=== PATIENT | female | born 1960 | race Caucasian/White ===

== ENCOUNTER 2025-05-23 10:54 | Outpatient (AMB) | payer MEDICARE, SELFPAY ==
--- NOTE | 2025-05-23 11:17 | MHC.PC.OV ---
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 Diplomatic Interpreter/Translator Required: No Allergies azithromycin Allergy (Severe, Verified 05/23/25 11:52) Nausea Medication List - Last Reconciled 05/19/25 by Cris Mcclelland, INDUSTRIAL ENGINEERING PROFESSOR- albuterol sulfate 90 mcg/actuation inhalation diazepam mg PO ipratropium bromide intranasal Tobacco use date assessed: 05/23/25 Fall risk assessment: 1 Fall in past year Last assessed Fall Risk: 05/23/25 Dental Screening Dental Screen Date: 05/23/25 Did you have a dental visit in the last 12 months?: Yes Did you have a dental problem in the last 6 months where you did not have access to dental care?: No Was dental information given to patient?: Patient has dentist HPI HPI Comments History of Present Illness Details 64 y/o F with MDD, ASYA, Fhx breast ca (mom), current tobacco user, DJD neck and back, fhx of dementia (dad),fhx melanoma (dad) SurgHx: L meniscal tear repair FHx: Dad age 90 dementia. SocHx: works at [employer], [place], . Has children and grandchildren Health Maintenance: See scanned preventative medicine assessment with personalized health plan and screening schedule. Colon: 2018 Mammo DEXA PAP Vaccines: Tdap 2015 declined today AAA screen EKG: [place] Ira of Care: Ortho - Spine derm Visual Acuity: Hearing Screening: ACP: Dietary/Nutrition/Exercise Edu provided: Y Here today as a new patient to establish care No records - relocated from [place]. Major depressive disorder and generalized anxiety disorder not treated with prescriptive medications. Using medical marijuana She has degenerative joint disease in her neck and her back has undergone ablations and steroid injections in the past. Has trialed meloxicam, Cymbalta without relief. Using medical marijuana. Interested in an updated referral for ongoing management History of left knee meniscal tear status post surgery. Imaging done in the past told of end-stage arthritis and need for a joint replacement. Reports pain and swelling of the left knee. Basal cell carcinoma of the skin uses topical treatments. Family history of melanoma in her father. Needs updated referral to Dermatology As bilateral cataracts and needs an updated ophthalmology referral Insomnia both onset and sleep maintenance. Currently using Benadryl, THC and Tylenol. Wakes at 04:00. Due for tetanus but declined Current smoker. Cessation edu. Willing to get routine screening labs today. BP elevated today upon recheck. Denies a history of hypertension Exam awake alert NAD Scleras nonicteric bilat MMM RRR LS CTAB Feet cool, decreased PP bilat, no edema. Arthritic changes to L knee. No acute findings on exam Skin w/ sun damage Mood and affect appropriate Plan Declined tetanus, refer to orthopedics for left knee, refer to pain management for DJD, refer to ophthalmology for cataracts, refer to dermatology for skin cancer, routine screening labs, we will need to return to the office for a blood pressure recheck as well as follow up on health maintenance items that are left outstanding. For insomnia advised to stop taking Benadryl advised to buy [id number] Unisom and take this in addition to Tylenol. Okay to continue medical marijuana. Return to the office in 4-6 weeks for blood pressure recheck in for a subsequent annual wellness visit. Total time spent caring for the patient today was 50 minutes. This includes time spent before the visit reviewing the chart, time spent during the visit, and time spent after the visit on documentation, reviewing laboratory results, diagnostic imaging, medications, performing a medically necessary evaluation, counseling on diagnoses, care coordination, ordering appropriate tests, ordering appropriate medications, review of tests performed by other providers, reporting test results with the patient, communication with other healthcare providers. [facility] Medical History (Updated 05/23/25 @ 12:09 by Cris Mcclelland, [facility]) Allergic Anxiety and depression Arthritis Back ache Disc degeneration, lumbar Edema Headache Hernia Hx of mammogram (~2017) Sinusitis Spine disorder Swelling Surgical History (Updated 05/23/25 @ 11:36 by Dieter Alcaraz MA) H/O knee surgery Hx of colonoscopy (~2018) Family History (Updated 05/23/25 @ 11:38 by Dieter Alcaraz MA) Father HTN (hypertension) High cholesterol Prostate cancer Mother Breast cancer Social History (Updated 05/23/25 @ 11:33 by Dieter Alcaraz MA) Household Members: Spouse Both parents involved: No Caregiver staying overnight: No Housing: House Are you a primary reservoir caretaker to a significant other at home: No Do you presently have visiting nurse or other home services: No 75 years or older and lives alone: No Alcohol intake: current Alcohol intake frequency: a few times a month Patient Tobacco Use Status: Current everyday Tobacco user Cigarettes Per Day: 15 e-Cigarette/Vaping Use: Never Used Second Hand Smoke Exposure: No Substance Use Type: Marijuana service: No Current occupational status: retired Cognitive needs: No Hearing needs: No Vision needs: Yes (wear glasses) Questionnaire PHQ-9 Over the last 2 weeks, how often have you been bothered by any of the following problems? 1. Little interest or pleasure in doing things: several days 2. Feeling down, depressed, or hopeless: several days 3. Trouble falling or staying asleep, or sleeping too much: nearly every day 4. Feeling tired or having little energy: more than half the days 5. Poor appetite or overeating: not at all 6. Feeling bad about yourself - or that you are a failure or have let yourself or your family down: not at all 7. Trouble concentrating on things, such as reading the newspaper or watching television: not at all 8. Moving or speaking so slowly that other people could have noticed. Or the opposite - being so fidgety or restless that you have been moving around a lot more than usual: several days 9. Thoughts that you would be better off or of hurting yourself in some way: not at all Total score: 8 Depression Screening Interpretation: Positive Depression Screening Follow-up: Existing condition and Community Mental Health Worker F/U Depression Screening Done: Yes 12842 - PHQ-9 Billing: Yes Source: Developed by Drs. Timbo Figueroa, Nahed Chapa, Benji Alvarado and colleagues, with an educational sanjana from [employer]. Thrive Questionnaire Date Thrive assessed: 05/23/25 I am a: Patient What is your living situation today?: I have a steady place to live Within the past 12 months, did the food you bought not last and you didn't have the money to get more?: Never true Within the past 12 months, did you worry whether your food would run out before you got money to buy more?: Never true Do you have trouble paying for medicines?: No Do you have trouble getting transportation to medical appointments?: No Do you have trouble paying your heating and electricity bill?: No Do you have trouble taking care of your child, family member or friend?: No Do you have trouble with day-to-day activities such as bathing, preparing meals, shopping, managing finances, etc.?: No Are you currently unemployed and looking for a job?: No Are you interested in more education?: No Please select the resources that you would like help with: None Currently or been in a relationship where the following occur: No concerns reported THRIVE Score: 0 AUDIT C Alcohol Use Questionnaire (AUDIT-C) 1. How often do you have a drink containing alcohol?: 2-4 times a month 2. How many drinks containing alcohol do you have on a typical day when you are drinking?: 3 or 4 3. How often do you have six or more drinks on one occasion?: Never Total Score: 3 Score Reviewed/Action Taken: Yes ASYA-7 AMB Questionnaire ASYA-7 Date ASYA - 7 assessed: 05/23/25 Feeling nervous, anxious, or on edge: 1 = Several days Not being able to stop or control worryin = Several days Worrying too much about different things: 1 = Several days Trouble relaxin = Several days Being so restless that it is hard to sit still: 0 = Not at all Becoming easily annoyed or irritable: 1 = Several days Feeling afraid as if something awful might happen: 1 = Several days Total ASYA-7 score (0-4 normal; 5-9 mild; 10-14 moderate; 15-21 severe): 6 Source: Developed by Drs. Timbo Figueroa, Nahed Chapa, Benji Alvarado and colleagues, with an educational sanjana from [employer]. ASYA-7 Assessment Billing ASYA-7 Assessment Tool: ASYA-7 Assessment 94709 ACT Questionnaire In the past 4 weeks, how much of the time did your asthma keep you from getting as much done at work, school or at home?: None of the time During the past 4 weeks, how often have you had shortness of breath?: Not at all During the past 4 weeks, how often did your asthma symptoms wake you up at night or earlier than usual in the morning?: Not at all During the past 4 weeks, how often have you had to use your rescue inhaler or nebulizer medication?: Not at all How would you rate your asthma control during the past 4 weeks?: Completely controlled ACT Interpretation: Negative Score: 25 Physical exam (Primary Care) Vital Signs: Last Vital Signs Temp 97.2 F 05/23/25 11:29 Pulse 63 05/23/25 11:29 Resp 12 05/23/25 11:29 BP 142/80 H 05/23/25 11:29 Pulse Ox 99 05/23/25 11:29 Oxygen Delivery Method Room Air 05/23/25 11:29 BMI result Body Mass Index 21.0 Tobacco/Smoking Status: Tobacco use Status Tobacco use date assessed 05/23/25 05/23/25 11:26 Patient Tobacco Use Status Current everyday Tobacco 05/23/25 11:33 e-Cigarette/Vaping Use Never Used 05/23/25 11:33 Are you ready to quit: No Tobacco cessation counseling provided: Yes Items discussed: Nicotine replacement, QuitWorks and Other Relapse Prevention: discussed the importance of a supportive environment, discussed extending NRT, discussed negative mood or depression after quitting, weight gain after smoking is common and discussed dietary, exercise and/or lifestyle changes Number of minutes spent counselin CPT code: 74581 - 4-10 Minutes PHQ-9: PHQ-9 Score PHQ-9: Total score 8 05/23/25 11:26 Depression Screening Interpretation: Positive Depression Screening Follow-up: Existing condition and Community Mental Health Worker F/U Thrive Assessment: Date of Thrive Assessment Date Thrive assessed 05/23/25 05/23/25 11:20 Currently or been in a relationship where the following occur: No concerns reported Coding Level of Care Code New Pt Level 4 (32530) Complex EM visit Add On G2211 Diagnoses Encounter to establish care with new provider Z76.89 Moderate episode of recurrent major depressive disorder F33.1 Major depression episode severity: moderate ASYA (generalized anxiety disorder) F41.1 Current smoker F17.200 Osteoarthritis of cervical spine, unspecified spinal osteoarthritis complication status M47.812 Spinal osteoarthritis complication: unspecified spinal osteoarthritis Osteoarthritis of lumbar spine, unspecified spinal osteoarthritis complication status M47.816 Spinal osteoarthritis complication: unspecified spinal osteoarthritis Psychophysiological insomnia F51.04 Insomnia type: psychophysiologic Environmental allergies Z91.09 Tetanus, diphtheria, and acellular pertussis (Tdap) vaccination declined Z28.21 Family history of melanoma Z80.8 Basal cell carcinoma (BCC) of skin of other part of torso C44.519 Basal cell carcinoma location: other part of trunk Cataract of both eyes, unspecified cataract type H26.9 Cataract type: unspecified Other secondary osteoarthritis of left knee M17.5 Osteoarthritis type: other secondary History of meniscal tear Z87.828 Elevated blood pressure reading without diagnosis of hypertension R03.0 Additional Codes Asthma Control Questionnaire - ACT Interpretation: Negative ([id number]) ASYA-7 Assessment Billing - ASYA-7 Assessment Tool: ASYA-7 Assessment 99286 ([id number]) PHQ-9 - 57331 - PHQ-9 Billing: Yes ([id number]) Vital Signs *Quality* - CPT code: 30175 - 4-10 Minutes ([id number]) Assessment & Plan Assessment & Plan (1) Encounter to establish care with new provider: Code(s): Z76.89 - Persons encountering health services in other specified circumstances (2) MDD (major depressive disorder), recurrent episode: Comment: medical marijuana Code(s): F33.9 - Major depressive disorder, recurrent, unspecified Category: Medical Qualifiers: Major depression episode severity: moderate Qualified Code(s): F33.1 - Major depressive disorder, recurrent, moderate (3) ASYA (generalized anxiety disorder): Comment: medical marijuana Code(s): F41.1 - Generalized anxiety disorder Category: Medical (4) Current smoker: Comment: Smoking Cessation How to Quit There are a lot of ways to quit smoking and many resources to help you. Family members, friends, and co-workers may be supportive or encouraging, but to be successful the desire and commitment to quit must be your own. Most people who have been able to successfully quit smoking made at least one unsuccessful attempt in the past. Try not to view past attempts to quit as failures, but rather as learning experiences. Stopping smoking or using smokeless tobacco is difficult, but anyone can do it. Know the symptoms to expect when you stop. Common symptoms include: ? An intense craving for nicotine ? Anxiety, tension, restlessness, frustration, or impatience ? Difficulty concentrating ? Drowsiness or trouble sleeping, as well as bad dreams and nightmares ? Drowsiness and trouble sleeping ? Headaches ? Increased appetite and weight gain ? Irritability or depression How severe your symptoms are depends on how long you smoked and how many cigarettes you smoked each day. Feel ready to quit? ? First and foremost, set a quit date and quit completely on that day. Before your quit date, you may begin reducing your cigarette use. But remember, there is no safe level of cigarette smoking. ? List the reasons why you want to quit. Include both short- and long-term benefits. ? Identify the times you are most likely to smoke. For example, do you tend to smoke when feeling stressed or down? When out at night with friends? While drinking coffee or alcohol? When bored? While driving? Right after a meal or sex? During a work break? While watching TV or playing cards? When you are with other smokers? ? Let all of your friends, family, and co-workers know of your plan to stop smoking and your quit date. Just being aware that they know what you're going through can be helpful, especially when you are grumpy. ? Get rid of all your cigarettes just before the quit date, and clean out anything that smells like smoke, such as clothes and furniture. Make a plan about what you will do instead of smoking at those times when you are most likely to smoke. ? Be as specific as possible. For example, drink tea instead of coffee -- tea may not trigger the desire for a cigarette. Or, take a walk when you feel stressed. ? Remove ashtrays and cigarettes from the car. Place pretzels or hard candies there instead. Pretend-smoke with a straw. ? Find activities that focus your hands and mind but are not taxing or fattening. Computer games, solitaire, knitting, sewing, and crossword puzzles may help. ? If you normally smoke after eating, find other ways to end a meal. Play a tape or CD, eat a piece of fruit, get up and make a phone call, or take a walk (a good distraction that also christianson calories). Make other changes in your lifestyle. ? Change your daily schedule and habits. Eat at different times or eat several small meals instead of three large ones. Sit in a different chair or even a different room. ? Satisfy your oral habits by eating celery or other low-calorie snack, chewing sugarless gum, or sucking on a cinnamon stick. ? Go to public places and restaurants where smoking is prohibited or restricted. ? Eat regular meals and don't eat too much candy or sweet things. ? Get more exercise. Take walks or ride a bike. Exercise helps relieve the urge to smoke. Set short-term quitting goals and reward yourself when you meet them. ? Every day, put the money you normally spend on cigarettes in a jar. Then buy something pleasurable after a period of time. ? Try not to think about all the days ahead you will need to avoid smoking. Take it one day at a time. ? Even one puff or one cigarette will make your desire for more cigarettes even stronger. However, it is normal to make mistakes. So even if you have one cigarette, you don't need to take the next one. Other tips to help you quit smoking and stick to it: ? Enroll in a smoking cessation program (hospitals, health departments, community centers, and work sites often offer programs). Learn about self-hypnosis or other techniques. ? Ask your health care provider about prescription medications that are safe and appropriate for you. ? Find out about nicotine patches, gum, and sprays. The [employer]'s web site -- www.cancer.org -- is an excellent resource for smokers who are trying to quit, and the [employer] [place] [employer] can help some smokers kick the habit. Above all, don't get discouraged if you aren't able to quit smoking the first time. Nicotine addiction is a hard habit to break. Try something different next time. Develop new strategies, and try again. Many people take several attempts to finally kick the habit. Code(s): F17.200 - Nicotine dependence, unspecified, uncomplicated Category: Social Hx (5) DJD (degenerative joint disease) of cervical spine: Comment: s/p ablation and steroids w/o effect medical marijuana + relief Code(s): M47.812 - Spondylosis without myelopathy or radiculopathy, cervical region Category: Medical Qualifiers: Spinal osteoarthritis complication: unspecified spinal osteoarthritis Qualified Code(s): M47.812 - Spondylosis without myelopathy or radiculopathy, cervical region (6) Degenerative joint disease (DJD) of lumbar spine: Comment: s/p ablation and steroids w/o effect medical marijuana + relief Code(s): M47.816 - Spondylosis without myelopathy or radiculopathy, lumbar region Category: Medical Qualifiers: Spinal osteoarthritis complication: unspecified spinal osteoarthritis Qualified Code(s): M47.816 - Spondylosis without myelopathy or radiculopathy, lumbar region (7) Insomnia: Comment: recommend stop benadryl start APAP at HS ADD Unisom 25mg qHS PRN Code(s): G47.00 - Insomnia, unspecified Category: Medical Qualifiers: Insomnia type: psychophysiologic Qualified Code(s): F51.04 - Psychophysiologic insomnia (8) Environmental allergies: Code(s): Z91.09 - Other allergy status, other than to drugs and biological substances Category: Medical (9) Tetanus, diphtheria, and acellular pertussis (Tdap) vaccination declined: Code(s): Z28.21 - Immunization not carried out because of patient refusal Category: Medical (10) Family history of melanoma: Comment: dad Code(s): Z80.8 - Family history of malignant neoplasm of other organs or systems Category: Medical (11) Basal cell carcinoma of skin: Code(s): C44.91 - Basal cell carcinoma of skin, unspecified Category: Medical Qualifiers: Basal cell carcinoma location: other part of trunk Qualified Code(s): C44.519 - Basal cell carcinoma of skin of other part of trunk (12) Cataract, bilateral: Code(s): H26.9 - Unspecified cataract Category: Medical Qualifiers: Cataract type: unspecified Qualified Code(s): H26.9 - Unspecified cataract (13) Osteoarthritis of left knee: Code(s): M17.12 - Unilateral primary osteoarthritis, left knee Category: Medical Qualifiers: Osteoarthritis type: other secondary Qualified Code(s): M17.5 - Other unilateral secondary osteoarthritis of knee (14) History of meniscal tear: Comment: s/p surgery L Code(s): Z87.828 - Personal history of other (healed) physical injury and trauma Category: Medical (15) Elevated blood pressure reading without diagnosis of hypertension: Code(s): R03.0 - Elevated blood-pressure reading, without diagnosis of hypertension Category: Medical Plan . Orders: Orders Complete Blood Count no Diff Today Z00.00 - Encounter for general adult medical examination without abnormal findings Lipid Panel Today Z00.00 - Encounter for general adult medical examination without abnormal findings Vitamin D 25-OH Total Today Z00.00 - Encounter for general adult medical examination without abnormal findings Comprehensive Met. Panel Today Z00.00 - Encounter for general adult medical examination without abnormal findings Microalbumin, Random (w Creat) Today Z00.00 - Encounter for general adult medical examination without abnormal findings TSH reflex Free T4 Today Z00.00 - Encounter for general adult medical examination without abnormal findings Vitamin B12 and Folate Today Z00.00 - Encounter for general adult medical examination without abnormal findings Referrals Dermatology Referral C44.91 - Basal cell carcinoma of skin, unspecified, Z80.8 - Family history of malignant neoplasm of other organs or systems Ophthalmology Referral H26.9 - Unspecified cataract Orthopedics Referral M17.12 - Unilateral primary osteoarthritis, left knee, Z87.828 - Personal history of other (healed) physical injury and trauma Pain Management Referral M47.812 - Spondylosis without myelopathy or radiculopathy, cervical region, M47.816 - Spondylosis without myelopathy or radiculopathy, lumbar region Medications: New albuterol sulfate 90 mcg/actuation 2 puffs inhalation Q6H 6.7 grams 2RF diazepam 5 mg PO .PRN 3 tabs 0RF PRN DENTAL PROCEDURES doxylamine succinate (Unisom (doxylamine)) 25 mg PO BEDTIME PRN 90 tabs 0RF sleep ipratropium bromide 2 sprays intranasal QID 45 mL 2RF fluorouracil 5% 1 appl topical BID 40 grams 2RF 4 weeks Patient Instructions: Walk-In Care (Urgent Care): We Make it Easy Walk-in for urgent medical issues such as: ? Seasonal Allergies ? Insect Bites ? Cough ? Diarrhea ? Acute Asthma Attacks ? Back, Knee or Joint Pain ? Ear Infection ? Fever without a Rash ? Headaches ? Nausea ? [place], Rash or Skin Irritation ? Sore Throat ? Sports Physicals ? Vomiting Most insurances are accepted. Patients do not need to be part of the [facility] to seek care at the walk-in clinic. Locations [facility] [address], [place] [address] ? [phone] [facility] in [place] provides services to ages 18 and over. Open Thursday-Thursday: 8 a.m. to 5 p.m. and Thursday: 9 a.m. to 3 p.m.* *Hours may vary due to staffing availability. To confirm Walk-In Care hours in [place], please call [phone]. [address] [place] [address] ? [phone] [facility] in [place] provides services to ages 12 and over. Open Thursday-Thursday: 8 a.m. to 5 p.m. Hours may vary due to staffing availability. To confirm Walk-In Care hours in [place], please call [phone]. LABORATORY SERVICES: [facility] Lab ? Primary Location [address] [place] [address] Thursday through Thursday 6:00 AM ? 5:00 PM Thursday 7:00 AM ? 11:00 AM* [phone] The [facility] Lab is centrally located near the front entrance of the [facility] for easy outpatient access. Convenient parking is provided for outpatients. *Hours may vary due to staffing availability. To confirm Laboratory hours for any location, please call [phone]. Offsite Location For your convenience, we offer offsite laboratory draw stations at the following locations: [address] [place] [address] ? [address], [address] Thursday through Thursday 7:30 AM ? 1:00 PM* [phone] *Hours may vary due to staffing availability. To confirm Laboratory hours for any location, please call [phone]. [place] ? [address] Thursday through Thursday 6:00 AM ? 3:30 PM* Thursday 6:30 AM ? 3 PM* [phone] *Hours may vary due to staffing availability. To confirm Laboratory hours for any location, please call [phone] [place] [address] Thursday through Thursday 7:30 AM ? 4:00 PM* [phone] *Hours may vary due to staffing availability. To confirm Laboratory hours for any location, please call [phone] [place] [address] Thursday through Thursday 9:00 AM ? 4:00 PM* *Hours may vary due to staffing availability. To confirm Laboratory hours for any location, please call [phone]. Appointments are not necessary. Walk-ins are welcome. Like all the departments throughout the [facility], our Lab undergoes frequent reviews to ensure the quality and accuracy of test results, and our staff takes special pride in its status as a nationally accredited facility. Patient Portal: ONE PATIENT. ONE RECORD. BETTER CARE. [facility] has a fully integrated, cutting-edge mobile electronic health information system that has revolutionized the way we care for our patients and manage our organization. This system improves communication and coordination enabling us to provide safe, higher-quality care, and an overall positive experience for staff and patients. Our first priority, as always, is to deliver the highest quality care possible. The system is running in the background supporting that priority. This portal is for all [facility] and [facility] services and practices. If you are experiencing any technical difficulties with enrolling or logging into the Patient Portal please complete the [facility] Patient Portal Technical Support Form. [facility] now offers a new secure on-line interactive tool for patients to review their health information ? ?Patient Portal. This interactive web portal will enable patients and their families to take an active role in their care by providing easy, secure access to their health information via the internet. The Patient Portal provides patients with instant access to their health information, including laboratory results, medications, allergies, demographic information, visit history, and more. In addition to managing their own care, parents and health care proxies with authorized consent will appreciate the ability to access the records of those individuals for whom they provide care. Please note: if you wish to gain access (Proxy) to another patient?s portal, you will be required to come to the Medical Records Department in person at [facility]. Both the patient giving proxy access and the proxy will need to provide photo identification and complete the appropriate authorization. The Patient Portal also allows track their appointments online. The [facility] Patient Portal also saves patients time by allowing them to submit updates to their demographic and contact information prior to their visits. Portal email notifications will also alert patients to any new activity on their portal, such as test results and new appointments. In order to initially enroll in the [facility] Patient Portal, you will need to enter some required information including the following: your [facility] Medical Record number your personal home email address name date of Please note: In order to enroll in the [facility] Patient Portal, we need to have your email address on file in your electronic medical record. ?The email address needs to be specific for one person (yourself) in order for your Portal enrollment to be successful. ?You can update your email address in person with our Registration staff when you are registering for a hospital visit. ?Otherwise, you will need to come to the Health Information Management (Medical Records) Department at [facility]. ?We are open from Thursday ? Thursday from 7:30 a.m. ? 4:30 p.m. ?You will be required to present a photo id. Once you have successfully enrolled in the Patient Portal, you will receive a one-time user id and password for the Portal, sent to your email address. ?This will allow you to log into the Patient Portal within 99 hrs and reset your own logon id and password, and define personal security questions. ?Once your permanent login and password have been set, you can log into the [facility] Patient Portal at any time via the blue button above or from the Portal Logon button on any page of the [facility] website. [facility] and [facility] encourage all of our patients to enroll in Patient Portal as it presents a valuable opportunity for patients and their families to actively participate in their care and stay healthy Welcome to [facility]. ?We look forward to working with you.
[2025-05-23 11:29] VITALS: BP 142/80; PULSE 63; RESP 12; TEMP 36.2; O2SAT 99; BMI 21.0
[2025-05-23 12:02] VITALS: BP 142/76
== END 2025-05-23 12:10 | disposition home or self-care (01) ==
LOC: HO.HMCFM 10:55
PROVIDERS: PCP Nurse Practitioner Family; Visit Provider Nurse Practitioner Family
DX: Z76.89 Persons encountering health services in other specified circumstances (principal); F33.1 Major depressive disorder, recurrent, moderate; F41.1 Generalized anxiety disorder; F17.200 Nicotine dependence, unspecified, uncomplicated; M47.812 Spondylosis without myelopathy or radiculopathy, cervical region; M47.816 Spondylosis without myelopathy or radiculopathy, lumbar region; F51.04 Psychophysiologic insomnia; Z91.09 Other allergy status, other than to drugs and biological substances; Z28.21 Immunization not carried out because of patient refusal; Z80.8 Family history of malignant neoplasm of other organs or systems; C44.519 Basal cell carcinoma of skin of other part of trunk; H26.9 Unspecified cataract; M17.5 Other unilateral secondary osteoarthritis of knee; Z87.828 Personal history of other (healed) physical injury and trauma; R03.0 Elevated blood-pressure reading, without diagnosis of hypertension

== ENCOUNTER → 2025-05-23 10:54 | Outpatient (BNVA) | payer MEDICARE, SELFPAY | PROVIDERS: PCP Nurse Practitioner Family; Visit Provider Nurse Practitioner Family | DX: Z00.00 Encounter for general adult medical examination without abnormal findings (principal); F41.1 Generalized anxiety disorder; M47.812 Spondylosis without myelopathy or radiculopathy, cervical region; M47.816 Spondylosis without myelopathy or radiculopathy, lumbar region; F33.1 Major depressive disorder, recurrent, moderate; F17.200 Nicotine dependence, unspecified, uncomplicated; F51.04 Psychophysiologic insomnia; C44.519 Basal cell carcinoma of skin of other part of trunk; H26.9 Unspecified cataract; M17.5 Other unilateral secondary osteoarthritis of knee; R03.0 Elevated blood-pressure reading, without diagnosis of hypertension; Z76.89 Persons encountering health services in other specified circumstances; Z87.828 Personal history of other (healed) physical injury and trauma; Z91.09 Other allergy status, other than to drugs and biological substances; Z28.21 Immunization not carried out because of patient refusal | CPT/HCPCS: 96127; 96160; 99202 ==

== ENCOUNTER 2025-05-29 10:54 | Outpatient (REF) | payer MEDICARE, SELFPAY ==
[2025-05-29 14:43] LABS: Hematocrit 42.7 % (37.0-47.0); Hemoglobin 14.0 g/dl (12.0-16.0); Mean Corpuscular HGB Conc 32.8 g/dl (31.0-35.0); Mean Corpuscular Hemoglobin 32.6 pg (27.0-33.0); Mean Corpuscular Volume 99.5 fL (80.0-98.0); NRBC Abs Auto 0.000 X10*3/uL (0.0-0.012); NRBC Pct Auto 0.0 /100WBC (0.0-0.2); Platelet Count 288 X10*3/uL (160-400); Red Blood Count 4.29 X10*6/uL (4.20-5.50); White Blood Count 6.2 X10*3/uL (4.8-10.8)
[2025-05-29 15:25] LABS: Alanine Aminotransferase 17 U/L (0-31); Albumin Level 4.6 g/dL (3.5-5.0); Alkaline Phosphatase 65 U/L (39-117); Anion Gap 11 (12-20); Aspartate Amino Transferase 23 U/L (5-31); Blood Urea Nitrogen 15 mg/dL (9-16); Calcium 9.4 mg/dL (8.4-10.2); Carbon Dioxide 28 mmol/L (22-29); Chloride 107 mmol/L (96-108); Cholesterol 213 mg/dL (<200); Estimated Glomerular Filt Rate > 60; HDL Cholesterol 72 mg/dL (>40); Potassium 3.8 mmol/L (3.3-5.1); Sodium 142 mmol/L (135-145); Total Protein 6.9 g/dL (6.5-8.0); Triglycerides 104 mg/dL (<150)
[2025-05-29 15:49] LABS: Folate 6.1 ng/mL (> or = 4.0); Vitamin B12 387 pg/mL (200-900)
== END 2025-05-29 10:55 | disposition home or self-care (01) ==
LOC: HO.WFDLDS 10:54
PROVIDERS: Visit Provider Nurse Practitioner Family
DX: Z00.00 Encounter for general adult medical examination without abnormal findings (principal); Z13.6 Encounter for screening for cardiovascular disorders
CPT/HCPCS: 36415; 80053; 80061; 82043; 82306; 82570; 82607; 82746; 84443; 85027

== ENCOUNTER 2025-06-26 09:55 | Outpatient (AMB) | payer MEDICARE, SELFPAY ==
--- NOTE | 2025-06-26 10:07 | A.OFFVIS_ITS ---
Intake Vital Signs 06/26/25 10:13 Height 5 ft 7 in Weight 135 lb 4 oz BMI 21.2 BP 98/68 Blood Pressure Location Lt brachial Position Sitting Respiration 12 Pulse 72 Pulse Source Pulse Oximeter Temp 97.1 F Temp Source Oral Pulse Oximetry (%) 98 Oxygen Delivery Method Room Air Intake Visit Reasons: 4-6 weeks 30 min sawv Intake Note: AWV and review labs Metal Weigher Required: No Allergies azithromycin Allergy (Severe, Verified 06/26/25 10:08) Nausea Medication List - Last Reconciled 06/26/25 by Cris Mcclelland, [facility] albuterol sulfate 90 mcg/actuation 2 puffs inhalation Q6H diazepam 5 mg PO .PRN doxylamine succinate (Unisom (doxylamine)) 25 mg PO BEDTIME PRN fluorouracil 5% 1 appl topical BID 4 weeks ipratropium bromide 2 sprays intranasal QID Is last menstrual period known: No Do you need a note to return to daycare/school/sports/work: No HPI HPI Comments History of Present Illness Details 64 y/o F with MDD, ASYA, Fhx breast ca (m om), current tobacco user, DJD neck and back, fhx of dementia (dad),fhx melanoma (dad), cataracts SurgHx: L meniscal tear repair FHx: Dad age 90 dementia. SocHx: works at [employer], . Has children and grandchildren Health Maintenance: See scanned preventative medicine assessment with personalized health plan and screening schedule. Colon: 2018, declined further intervention Mammo ordered today DEXA: ordered today, last time about 7 years ago PAP: aged out Vaccines: Tdap 2014 declined today AAA screen: declined EKG: done today L atrial enlargement declined echo Lung Ca screening: declined today [facility] Care: Ortho - Spine Derm Visual Acuity: has cataracts, will have these removed Hearing Screening: no issues ACP: does not have HCP , Living will or MOLST. Reviewed w/ her today and forms given today to complete. Dietary/Nutrition/Exercise Edu provided: Y History of Present Illness - The patient is a 64-year-old female pr esenting for an annual Medicare wellness visit. - History of major depressive disorder a nd generalized anxiety disorder with adverse reactions to several medications. - Insomnia persists despite Unisom use 5 0mg, affecting sleep on most nights. - PTSD and anxiety related to traumatic family events. - Family history of dementia, melanoma, and breast cancer. Family History - Dementia in a parent. - Melanoma in her father. - Breast cancer in her mother. Social History - Current tobacco user - Involved in regular exercise through [employer] activities. - Reports worsening symptoms without reg ular exercise. - Diet includes consumption of sweets Health Maintenance - Blood pressure WNL w/o meds - Cholesterol levels checked; LDL is 121 , with HDL at 72. - Diabetes ruled out via a1c, no anemia, normal electrolytes, and kidney function. - Mammogram discussed, declined further screening. - No current pap smear; aged out - Previous colonoscopy experiences negat vitaliy, opted against future procedures. - Discussion of lung cancer screening, c onsidering for next year. - Bone density scan suggested, patient e ncouraged to combine with mammogram. Review of Systems - Psychiatric: Reports anxiety and insom bill. - Neurological: Denies dizziness or sync ope. - Cardiovascular: Reports good control o f blood pressure today. - Respiratory: Denies shortness of breat h. - Gastrointestinal: Reports eating sweet s; denies abdominal pain. - Musculoskeletal: Denies joint swelling . - Dermatologic: Denies rashes or signifi cant hair loss. Physical Exam General: Well developed, well nourished, in no acute distress. Appears stated age. Head: Normocephalic, atraumatic. Eyes: Pupils are equal, round and reactive to light and accommodation. Conjunctivae are clear. Vision grossly normal. Ears: TMs clear AU, EACS WNL Nose: Patent, without discharge. Neck: Supple, no adenopathy or thyromegaly. Breast: Declined mammogram. Lungs: Clear to auscultation bilaterally. No rales, rhonchi or wheeze noted. Good air flow in all gr. Heart: Regular rate and rhythm. No murmurs, click, rubs or gallops are noted. EKG showed atrial enlargement. Abdomen: Bowel sounds present in all quadrants. The abdomen is soft, nontender, with no masses or organomegaly noted. No hernias are noted. : Deferred. Reviewed recommendations for routine BOOKMOBILE [employer]. Pulses: Feet cool, decreased PP bilat, no edema. Extremities: No clubbing, cyanosis nor edema is noted. Neurologic: Gait and station normal. Cranial Nerves 2-12 intact. Motor strength grossly symmetrical and intact. No sensory loss. Balance normal. Skin: No rashes, ulcers, or lesions noted. Turgor is good. Skin is sun damaged. Hair and nails are without abnormalities. Psych: Normal eye contact, affect and mood appropriate, and normal interactions. Patient is alert and appropriate to context. Results - Labs: Cholesterol panel reveals elevat ed LDL at 121, HDL at 72. - Tests and Diagnostics: EKG indicates a trial enlargement Discussion Notes I discussed the use of prazosin with the patient for management of insomnia and PTSD symptoms. We covered that prazosin is not an antidepressant or anti-anxiety medication, but can assist with sleep issues by managing racing thoughts. The patient was agreeable to a trial, starting with 1 mg at bedtime, increasing to a maximum of 4 mg if needed. Follow-up to assess efficacy after two weeks was discussed. Health maintenance topics, such as cholesterol management, smoking cessation, and dental health were reviewed. Options for cancer screenings and bone density studies were offered, with patient declinations noted. We reviewed proxy and advanced care planning, underscoring the importance of these documents. Patient was given time to ask questions. All questions were answered to their satisfaction. Assessment and Plan 1. Major Depressive Disorder - Continue Valium PRN. 2. Generalized Anxiety Disorder - Monitor response to prazosin for insom bill. 3. Insomnia - Start prazosin 1 mg nightly, titrate b y 1 mg [id number] PRN, Max 4 mg Ok to cont unisom 50mg 4. Tobacco Use - Consider lung cancer screening at next annual visit. 5. Borderline Hypercholesterolemia - Advise on diet modifications, monitor. Declined statin 6. PTSD - Use prazosin for potential symptom rel ief. Patient Instructions - Take prazosin 1 mg at bedtime for slee p. - Monitor and report if dose adjustment is needed in two weeks. - Attend scheduled visits for bone densi ty and mammogram if desired. - Maintain exercise routine as it improv es stress and serotonin levels. - Follow a diet to manage cholesterol, l imiting sweets. - Review health care proxy documents as discussed. Consent Patient was informed and verbally consented to the use of an ambient scribe for clinic note documentation during this visit. An additional 30 minutes was spent addressing the problem(s) noted at todays visit. This includes time spent before the visit reviewing the chart, time spent during the visit, and time spent after the visit on documentation [facility] Medical History (Updated 06/26/25 @ 18:22 by [facility]) Allergic Anxiety and depression Arthritis Back ache Disc degeneration, lumbar Edema Headache Hernia Hx of mammogram (~2018) Sinusitis Spine disorder Swelling Surgical History (Updated 05/23/25 @ 11:36 by Dieter Alcaraz MA) H/O knee surgery Hx of colonoscopy (~2018) Family History (Updated 05/23/25 @ 11:38 by Dieter Alcaraz MA) Father HTN (hypertension) High cholesterol Prostate cancer Mother Breast cancer Social History (Updated 05/23/25 @ 11:33 by Dieter Alcaraz MA) Household Members: Spouse Both parents involved: No Caregiver staying overnight: No Housing: House Are you a primary director of home care hospice to a significant other at home: No Do you presently have visiting nurse or other home services: No 75 years or older and lives alone: No Alcohol intake: current Alcohol intake frequency: a few times a month Patient Tobacco Use Status: Current everyday Tobacco user Cigarettes Per Day: 15 e-Cigarette/Vaping Use: Never Used Second Hand Smoke Exposure: No Substance Use Type: Marijuana service: No Current occupational status: retired Cognitive needs: No Hearing needs: No Vision needs: Yes (wear glasses) Questionnaire Medicare Wellness Checkup What [age] 65-67 What gender do you identify with?: female During the past 4 weeks, how much have you been bothered by emotional problems such as feeling anxious, depressed, irritable, sad or downhearted, and blue?: not at all During the past 4 weeks, has your physical & emotional health limited your social activities with family, friends, neighbors, or groups?: not at all During the past 4 weeks, how much bodily pain have you generally had?: no pain During the past 4 weeks, was someone available to help you if you needed & wanted help?: yes, as much as I wanted During the past 4 weeks, what was the hardest physical activity you could do for at least 2 minutes?: heavy Can you get to places out of walking distance without help? (For eg., can you travel alone on buses, taxis or drive your car?): Yes Can you go shopping for groceries or clothes without someone's help?: Yes Can you prepare your own meals?: Yes Can you do your housework without help?: Yes Because of any health problems, do you need the help of another person with your personal care needs such as eating, bathing, dressing or getting around the house?: Yes Can you handle your own money without help?: Yes During the past 4 weeks, how would you rate your health in general?: excellent During the past 4 weeks how have things been going for you?: very well; could hardly better Are you having difficulties driving your car?: no Do you always fasten your seat belt when you are in a car?: yes, usually During past 4 weeks, have you been bothered by the following: never: Falling or dizzy when standing up, Sexual problems?, Trouble eating well?, Teeth or denture problems?, Problems using the telephone? and Tiredness or fatigue? Have you fallen 2 or more times in the past year?: No Are you afraid of falling?: No Are you a smoker?: yes, but I'm not ready to quit During the past 4 weeks, how many drinks of wine, beer, or other alcoholic beverages did you have?: no alcohol at all Do you exercise for about 20 minutes 3 or more times a week?: yes, some of the time Have you been given information to help with the following?: no: Hazards in your house that might hurt you? and no: Keeping track of your medications? How often do you have trouble taking medicines the way you have been told to take them?: I always take medicine as prescribed How confident are you that you can control & manage most of your health problems?: very confident What is your race?: White Activity of Daily Living Bathing - sponge bath, tub bath or shower: receives no assistance (gets in/out by self, if usual bathing means Dressing - getting clothes from closets & drawers, including inner/outer garments & fasteners.: gets clothes & gets completely dressed without help Toileting - going to the 'toilet room' for urine/bowel elimination & cleaning self/arranging clothes: goes to toilet room, cleans self, arranges clothes without help Transfer: moves in & out of bed and chair without help (may use support object) Continence: controls urination/bowel movements completely by self Feeding: feeds self without help Total Score: 0 Information obtained from: patient Using telephone: independent Traveling: independent Shopping: independent Preparing meals: independent Housework: independent Taking medicine: independent Managing money: independent PHQ-9 Over the last 2 weeks, how often have you been bothered by any of the following problems? 1. Little interest or pleasure in doing things: not at all 2. Feeling down, depressed, or hopeless: not at all 3. Trouble falling or staying asleep, or sleeping too much: not at all 4. Feeling tired or having little energy: not at all 5. Poor appetite or overeating: not at all 6. Feeling bad about yourself - or that you are a failure or have let yourself or your family down: not at all 7. Trouble concentrating on things, such as reading the newspaper or watching television: not at all 8. Moving or speaking so slowly that other people could have noticed. Or the opposite - being so fidgety or restless that you have been moving around a lot more than usual: not at all 9. Thoughts that you would be better off or of hurting yourself in some way: not at all Total score: 0 Depression Screening Interpretation: Negative Depression Screening Done: Yes 41735 - PHQ-9 Billing: Yes Source: Developed by Drs. Timbo Figueroa, Nahed Chapa, Benji Alvarado and colleagues, with an educational sanjana from [employer]. Physical Exam Vital Signs: Last Vital Signs Temp 97.1 F 06/26/25 10:13 Pulse 72 06/26/25 10:13 Resp 12 06/26/25 10:13 BP 98/68 06/26/25 10:13 Pulse Ox 98 06/26/25 10:13 Oxygen Delivery Method Room Air 06/26/25 10:13 BMI result Body Mass Index 21.2 Office Procedures EKG [id number], Complete Vision Screening Right Eye: 20/70 Left Eye: 20/30 Bilateral: 20/25 Color: Pass 41946 - Vision Screening Results AMB Hemoglobin A1c AMB Hemoglobin A1c 5.0 % Last Edit by Dieter Alcaraz MA on 06/26/25 10:29 Results Reviewed Results Reviewed: Laboratory Last Values Hgb A1c (Clinic) 5.0 % (4.0-6.0) 06/26/25 10:18 05/29/2025: reviewed At visit Laboratory Result Units Range Interpretation Provider Comments White Blood Count 6.2 X10*3/uL (4.8-10.8) Red Blood Count 4.29 X10*6/uL (4.20-5.50) Hemoglobin 14.0 g/dl (12.0-16.0) Hematocrit 42.7 % (37.0-47.0) Mean Corpuscular Volume 99.5 fL (80.0-98.0) High Mean Corpuscular Hemoglobin 32.6 pg (27.0-33.0) Mean Corpuscular Hemoglobin Concent 32.8 g/dl (31.0-35.0) Red Cell Distribution Width 13.4 % (11.0-16.0) Platelet Count 288 X10*3/uL (160-400) Mean Platelet Volume 9.7 fL (9.4-12.3) Nucleated RBC Absolute Count (auto) 0.000 X10*3/uL (0.0-0.012) Nucleated Red Blood Cells % (auto) 0.0 /100WBC (0.0-0.2) Sodium Level 142 mmol/L (135-145) Potassium Level 3.8 mmol/L (3.3-5.1) Chloride Level 107 mmol/L (96-108) Carbon Dioxide Level 28 mmol/L (22-29) Anion Gap 11 (12-20) Low Blood Urea Nitrogen 15 mg/dL (9-16) Creatinine 0.63 mg/dL (0.5-1.4) Estimated Creatinine Clearance Calc Not Reportable Estimat Glomerular Filtration Rate > 60 Random Glucose 89 mg/dL (60-115) Calcium Level 9.4 mg/dL (8.4-10.2) Total Bilirubin 0.4 mg/dL (0.0-1.0) Aspartate Amino Transf (AST/SGOT) 23 U/L (5-31) Alanine Aminotransferase (ALT/SGPT) 17 U/L (0-31) Alkaline Phosphatase 65 U/L (39-117) Total Protein 6.9 g/dL (6.5-8.0) Albumin 4.6 g/dL (3.5-5.0) Triglycerides Level 104 mg/dL (<150) Cholesterol Level 213 mg/dL (<200) High LDL Cholesterol, Calculated 121 mg/dL (<100) High HDL Cholesterol 72 mg/dL (>40) Vitamin B12 Level 387 pg/mL (200-900) 25-Hydroxy Vitamin D Total 43.2 ng/mL (>30) Folate 6.1 ng/mL (> or = 4.0) Thyroid Stimulating Hormone (TSH) 0.48 uIU/mL (0.32-4.0) Urine Creatinine 12.38 mg/dL Urine Microalbumin < 5.0 mg/L Urine Microalbumin/Creatinine Ratio TNP Assessment & Plan Assessment & Plan (1) Encounter for subsequent annual wellness visit (AWV) in Medicare patient: Onset Date: ~06/26/25 Code(s): Z00.00 - Encounter for general adult medical examination without abnormal findings (2) ACP (advance care planning): Code(s): Z71.89 - Other specified counseling (3) MDD (major depressive disorder), recurrent episode: Comment: medical marijuana Code(s): F33.9 - Major depressive disorder, recurrent, unspecified Qualifiers: Major depression episode severity: moderate Qualified Code(s): F33.1 - Major depressive disorder, recurrent, moderate (4) ASYA (generalized anxiety disorder): Comment: medical marijuana Code(s): F41.1 - Generalized anxiety disorder (5) Elevated blood pressure reading without diagnosis of hypertension: Code(s): R03.0 - Elevated blood-pressure reading, without diagnosis of hypertension (6) Cataract, bilateral: Code(s): H26.9 - Unspecified cataract Qualifiers: Cataract type: unspecified Qualified Code(s): H26.9 - Unspecified cataract (7) Menopause: Code(s): Z78.0 - Asymptomatic menopausal state (8) Family history of melanoma: Comment: dad Code(s): Z80.8 - Family history of malignant neoplasm of other organs or systems (9) Tetanus, diphtheria, and acellular pertussis (Tdap) vaccination declined: Code(s): Z28.21 - Immunization not carried out because of patient refusal (10) Insomnia: Comment: recommend stop benadryl start APAP at HS ADD Unisom 50mg qHS PRN Prazosin start Code(s): G47.00 - Insomnia, unspecified Qualifiers: Insomnia type: psychophysiologic Qualified Code(s): F51.04 - Psychophysiologic insomnia (11) Current smoker: Comment: Smoking Cessation How to Quit There are a lot of ways to quit smoking and many resources to help you. Family members, friends, and co-workers may be supportive or encouraging, but to be successful the desire and commitment to quit must be your own. Most people who have been able to successfully quit smoking made at least one unsuccessful attempt in the past. Try not to view past attempts to quit as failures, but rather as learning experien glendy. Stopping smoking or using smokeless tobacco is difficult, but anyone can do it. Know the symptoms to expect when you stop. Common symptoms include: ? An intense craving for nicotine ? Anxiety, tension, restlessness, frustration, or impatience ? Difficulty concentrating ? Drowsiness or trouble sleeping, as well as bad dreams and nightmares ? Drowsiness and trouble sleeping ? Headaches ? Increased appetite and weight gain ? Irritability or depression How severe your symptoms are depends on how long you smoked and how many cigarettes you smoked each day. Feel ready to quit? ? First and foremost, set a quit date and quit completely on that day. Before your quit date, you may begin reducing your cigarette use. But remember, there is no safe level of cigarette smoking. ? List the reasons why you want to quit. Include both short- and long-term benefits. ? Identify the times you are most likely to smoke. For example, do you tend to smoke when feeling stressed or down? When out at night with friends? While drinking coffee or alcohol? When bored? While driving? Right after a meal or sex? During a work break? While watching TV or playing cards? When you are with other smokers? ? Let all of your friends, family, and co-workers know of your plan to stop smoking and your quit date. Just being aware that they know what you're going through can be helpful, especially when you are grumpy. ? Get rid of all your cigarettes just before the quit date, and clean out anything that smells like smoke, such as clothes and furniture. Make a plan about what you will do instead of smoking at those times when you are most likely to smoke. ? Be as specific as possible. For example, drink tea instead of coffee -- tea may not trigger the desire for a cigarette. Or, take a walk when you feel stressed. ? Remove ashtrays and cigarettes from the car. Place pretzels or hard candies there instead. Pretend-smoke with a straw. ? Find activities that focus your hands and mind but are not taxing or fatt ening. Computer games, solitaire, knitting, sewing, and crossword puzzles may help. ? If you normally smoke after eating, find other ways to end a meal. Play a tape or CD, eat a piece of fruit, get up and make a phone call, or take a walk (a good distraction that also christianson calories). Make other changes in your lifestyle. ? Change your daily schedule and habits. Eat at different times or eat several small meals instead of three large ones. Sit in a different chair or even a different room. ? Satisfy your oral habits by eating celery or other low-calorie snack, chewing sugarless gum, or sucking on a cinnamon stick. ? Go to public places and restaurants where smoking is prohibited or restricted. ? Eat regular meals and don't eat too much candy or sweet things. ? Get more exercise. Take walks or ride a bike. Exercise helps relieve the urge to smoke. Set short-term quitting goals and reward yourself when you meet them. ? Every day, put the money you normally spend on cigarettes in a jar. Then buy something pleasurable after a period of time. ? Try not to think about all the days ahead you will need to avoid smoking. Take it one day at a time. ? Even one puff or one cigarette will make your desire for more cigarettes even stronger. However, it is normal to make mistakes. So even if you have one cigarette, you don't need to take the next one. Other tips to help you quit smoking and stick to it: ? Enroll in a smoking cessation program (hospitals, health departments, community centers, and work sites often offer programs). Learn about self-hypnosis or other techniques. ? Ask your health care provider about prescription medications that are safe and appropriate for you. ? Find out about nicotine patches, gum, and sprays. The [place] [employer]'s web site -- www.cancer.org -- is an excellent resource for smokers who are trying to quit, and the [employer] [place] [employer] can help some smokers kick the habit. Above all, don't get discouraged if you aren't able to quit smoking the first time. Nicotine addiction is a hard habit to break. Try something different next time. Develop new strategies, and try again. Many people take several attempts to finally kick the habit. Code(s): F17.200 - Nicotine dependence, unspecified, uncomplicated (12) Lung cancer screening declined by patient: Onset Date: ~06/26/25 Code(s): Z53.20 - Procedure and treatment not carried out because of patient's decision for unspecified reasons Plan . Orders: Orders AMB Hemoglobin A1c Today Z13.9 - Encounter for screening, unspecified MM tomosynthesis screening BI Today Z12.31 - Encounter for screening mammogram for malignant neoplasm of breast XR DEXA axial skeleton Today Z13.820 - Encounter for screening for osteoporosis, Z78.0 - Asymptomatic menopausal state Medications: New prazosin 1 mg PO BEDTIME 90 caps 0RF Patient Instructions: Health screenings for women You should visit your health care provider from time to time, even if you are healthy. The purpose of these visits is to: Screen for medical issues Assess your risk for future medical problems Encourage a healthy lifestyle Update vaccinations and other preventive care services Help you get to know your provider in case of an illness Information Even if you feel fine, you should still see your provider for regular checkups. These visits can help you avoid problems in the future. For example, the only way to find out if you have high blood pressure is to have it checked regularly. High blood sugar and high cholesterol levels also may not have any symptoms in the early stages. A simple blood test can check for these conditions. There are specific times when you should see your provider or receive specific health screenings. The [place] Preventive Services Task Force publishes a list of recommended screenings. Below are screening guidelines for women ages 18 to 39. BLOOD PRESSURE SCREENING Your blood pressure should be checked at least once every 3 to 5 years if: Your blood pressure is in the normal range (top number less than 120 mm Hg and bottom number less than 80 mm Hg) You don't have risk factors for high blood pressure Ask your provider if you need your blood pressure checked more often if: The top number is 120 to 129 mm Hg or the bottom number is 70 to 79 mm Hg You have diabetes, heart disease, kidney problems, are overweight, or have certain other health conditions You have a first-degree relative with high blood pressure You are Black You had high blood pressure during a If the top number is 130 mm Hg or greater or the bottom number is 80 mm Hg or greater, this is considered stage 1 hypertension. Schedule an appointment with your provider to learn how you can reduce your blood pressure. Watch for blood pressure screenings in your area. Ask your provider if you can stop in to have your blood pressure checked. BREAST CANCER SCREENING Experts do not agree about the benefits of breast self-exams in finding breast cancer or saving lives. Talk to your provider about what is best for you. A screening mammogram is not recommended for most women under age 40. Your provider may discuss and recommend mammograms, MRI scans, or ultrasounds if you have an increased risk for breast cancer, such as: A mother or sister who had breast cancer at a young age (most often starting screening earlier than the age the close relative was diagnosed) You carry a high-risk genetic marker CERVICAL CANCER SCREENING Cervical cancer screening should start at age 21 years unless your provider advises otherwise. After the first test: Women ages 21 through 29 should have a Pap test every 3 years. Exoprts do not agree on whether HPV testing is recommended for this age group. Women ages 30 through 65 should be screened with either a Pap test every 3 years or the HPV test every 5 years or both tests every 5 years (called cotesting ). Women who have been treated for precancer (cervical dysplasia) should continue to have Pap tests for 20 years after treatment or until age 65, whichever is longer. If you have had your uterus and cervix removed (total hysterectomy), and you have not been diagnosed with cervical cancer or precancer (high grade cervical neoplasia), you do not need cervical cancer screening. CHOLESTEROL SCREENING Cholesterol screening should begin at: Age 45 for women with no known risk factors for coronary heart disease Age 20 for women with known risk factors for coronary heart disease Repeat cholesterol screening should take place: Every 5 years for women with normal cholesterol levels More often if changes occur in lifestyle (including weight gain and diet) More often if you have diabetes, heart disease, kidney problems, or certain other conditions DIABETES SCREENING You should be screened for diabetes starting at age 35 and then repeated every 3 years if you have no risk factors for diabetes. Screening may need to start earlier and be repeated more often if you have other risk factors for diabetes, such as: You have a first degree relative with diabetes. You are overweight or have obesity. You have high blood pressure, prediabetes, or a history of heart disease. Screening for diabetes should be done if you are planning to become and you are overweight and have other risk factors such as high blood pressure. DENTAL EXAM Go to the dentist once or twice every year for an exam and cleaning. Your dentist will evaluate if you need more frequent visits. EYE EXAM Have an eye exam every 5 to 10 years before age 40. If you have vision problems, have an eye exam every 2 years or more often if recommended by your provider. You should have an eye exam that includes an examination of your retina (back of your eye) at least every year if you have diabetes. IMMUNIZATIONS Commonly needed vaccines include: Flu shot: get one every year. COVID-19 vaccine: ask your provider what is best for you. Tetanus-diphtheria and acellular pertussis (Tdap) vaccine: have one at or after age 19 as one of your tetanus-diphtheria vaccines if you did not receive it as an adolescent. Tetanus-diphtheria: have a booster (or Tdap) every 10 years. Varicella vaccine: receive 2 doses if you never had chickenpox or the varicella vaccine. Hepatitis B vaccine: receive 2, 3, or 4 doses, depending on your exact circumstances. Measles, mumps, and rubella (MMR) vaccine: receive 1 to 2 doses if you are not already immune to MMR. Your provider can tell you if you are immune. Ask your provider about the human papillomavirus (HPV) vaccine if: You have not received the HPV vaccine in the past You have not completed the full vaccine series (you should catch up on this shot) Ask your provider if you should receive other immunizations if you have certain health problems that increase your risk for some diseases such as pneumonia. INFECTIOUS DISEASE SCREENING Women who are sexually active should be screened for chlamydia and gonorrhea up until age 25. Women 25 years and older should be screened for chlamydia and gonorrhea if at high risk. Screening for hepatitis C: All adults ages 18 to 79 should get a one-time test for hepatitis C. people should be screened at every . Screening for human immunodeficiency virus (HIV): All people ages 15 to 65 should get a one-time test for HIV. Depending on your lifestyle and medical history, you may also need to be screened for infections such as syphilis and HIV, as well as other infections. PHYSICAL EXAM All adults should visit their provider from time to time, even if they are healthy. The purpose of these visits is to: Screen for disease Assess your risk of future medical problems Encourage a healthy lifestyle Update your vaccinations and other preventive care services Maintain a relationship with a provider in case of an illness Your height, weight, and BMI should be checked at every exam. During your exam, your provider may ask you about: Depression and anxiety Diet and exercise Alcohol and tobacco use Safety issues, such as using seat belts, smoke detectors, and intimate partner violence Your medicines and risk for interactions SKIN SELF-EXAM Your provider may check your skin for signs of skin cancer, especially if you're at high risk, such as if you: Have had skin cancer before Have close relatives with skin cancer Have a weakened immune system OTHER SCREENING Talk with your provider about colon cancer screening if you have a strong family history of colon cancer or polyps, or if you have had inflammatory bowel disease or polyps yourself. Routine bone density screening of women under 40 is not recommended. Quality Reporting (2019) Adult ([facility] 138/12/10/68) Smoking risk assessment performed?: Yes Patient Tobacco Use Status: Current everyday Tobacco user Tobacco cessation counseling provided: Yes Items discussed: Nicotine replacement, QuitWorks and Other Pharmacotherapy not ordered: Yes (declined) Depression screening performed: Yes Screen Results: Yes Negative screen Systolic BP not done?: No Diastolic BP not done?: No Sexual Activity Screening ([facility] 153) Sexually active?: Yes Immunizations ([facility] 147, 117) Annual Influenza Vaccine: Yes Measles Antibody Test: No Mumps Antibody Test: No Rubella Antibody Test: No Varicella Antibody Test: No Anti Hepatitis A IgG Antigen test: No Anti Hepatitis B Virus Surface Ab test: No Fall Risk Screening ([facility] 139) Last assessed Fall Risk: 06/26/25 Fall risk assessment: No Falls in past year Dementia Assessment ([facility] 149) Cognitive assessment recorded: Yes Assessment of cognition with standardized tool: Yes Depression/Bipolar (159/160/161/177) PHQ-9: Total score: 0 Ophthalmol:Cataracts Visual Acuity (133) Visual acuity exam performed: Yes (see results) Coding Level of Care Code Medicare Subsequent (G0439) Est Pt Level 4 (04513) Diagnoses Encounter for subsequent annual wellness visit (AWV) in Medicare patient Z00.00 ACP (advance care planning) Z71.89 Moderate episode of recurrent major depressive disorder F33.1 Major depression episode severity: moderate ASYA (generalized anxiety disorder) F41.1 Elevated blood pressure reading without diagnosis of hypertension R03.0 Cataract of both eyes, unspecified cataract type H26.9 Cataract type: unspecified Menopause Z78.0 Family history of melanoma Z80.8 Tetanus, diphtheria, and acellular pertussis (Tdap) vaccination declined Z28.21 Psychophysiological insomnia F51.04 Insomnia type: psychophysiologic Current smoker F17.200 Lung cancer screening declined by patient Z53.20 CPT Codes Advance Care Planning - Time spent: 1-15 minutes, not on file ([id number]) EKG - CPT: 31830-Nctovlgumqxtreiwv, Complete ([id number]) Vision Screening - Vision Screenin - Vision Screening ([id number]) Additional Codes PHQ-9 - 58480 - PHQ-9 Billing: Yes ([id number]) Advance Care Planning Advance Care Planning discussion: Exists, not on file Date of discussion: 06/26/25 Forms completed: Health Care Proxy, [facility]OLST and Living will Time spent: 1-15 minutes, not on file Actual minutes spent: 5
[2025-06-26 10:13] VITALS: BP 98/68; PULSE 72; RESP 12; TEMP 36.2; O2SAT 98; BMI 21.2
== END 2025-06-26 11:08 | disposition home or self-care (01) ==
LOC: HO.HMCFM 09:55
PROVIDERS: PCP Nurse Practitioner Family; Visit Provider Nurse Practitioner Family
DX: Z00.00 Encounter for general adult medical examination without abnormal findings (principal); F33.1 Major depressive disorder, recurrent, moderate; F41.1 Generalized anxiety disorder; R03.0 Elevated blood-pressure reading, without diagnosis of hypertension; H26.9 Unspecified cataract; Z71.89 Other specified counseling; Z78.0 Asymptomatic menopausal state; Z80.8 Family history of malignant neoplasm of other organs or systems; Z28.21 Immunization not carried out because of patient refusal; F51.04 Psychophysiologic insomnia; F17.200 Nicotine dependence, unspecified, uncomplicated; Z13.9 Encounter for screening, unspecified

== ENCOUNTER → 2025-06-26 09:55 | Outpatient (BNVA) | payer MEDICARE, SELFPAY | PROVIDERS: PCP Nurse Practitioner Family; Visit Provider Nurse Practitioner Family | DX: Z00.00 Encounter for general adult medical examination without abnormal findings (principal); F41.1 Generalized anxiety disorder; G47.00 Insomnia, unspecified; F43.10 Post-traumatic stress disorder, unspecified; F33.1 Major depressive disorder, recurrent, moderate; R03.0 Elevated blood-pressure reading, without diagnosis of hypertension; H26.9 Unspecified cataract; F51.04 Psychophysiologic insomnia; F17.210 Nicotine dependence, cigarettes, uncomplicated; Z71.89 Other specified counseling | CPT/HCPCS: 83036; 93005; 96127; 99212 ==

== ENCOUNTER 2025-09-27 12:29 | Outpatient (REF) | payer MEDICARE, SELFPAY ==
--- NOTE | ~2025-09-27 | MM_ITS ---
EXAMINATION: MM SCREENING DIGITAL BREAST TOMOSYNTHESIS, BILATERAL CLINICAL INFORMATION: Screening. Asymptomatic. COMPARISON: Mammography: Comparison is made with available priors TECHNIQUE: Digital breast mammography with tomosynthesis is performed in both the craniocaudal and mediolateral oblique views along with computer-aided detection (CAD). FINDINGS: There are scattered areas of fibroglandular density. Left: Focal asymmetry upper central slightly outer breast anterior middle depth with questioned associated architectural distortion and calcifications. Right: There are no significant masses, abnormal calcifications, or other abnormalities. MM/MM tomosynthesis screening BI IMPRESSION: Additional imaging is recommended ASSESSMENT: BI-RADS Category 0: Incomplete - Need additional Imaging Evaluation RECOMMENDATION: 1. Additional views of the left breast.. 2. Targeted ultrasound if warranted after review of the additional views. 3. Radiology department staff will contact the patient for additional imaging. Additional Imaging required Electronically signed by: Lilliana Brennan DO 09/29/2025 02:44 PM [facility]
--- NOTE | ~2025-09-27 | MM_ITS ---
EXAMINATION: DXA BONE DENSITY AXIAL HISTORY: Z13.820 - Encounter for screening for osteoporosis TECHNIQUE: [employer] Dual energy absorptiometry (DEXA) of the lumbar spine, total left hip, and femoral neck was performed. COMPARISON: There are no prior studies for comparison. FINDINGS: The bone mineral density of the lumbar spine is 0.869 g/cm2, corresponding to a T-score of -2.6, and a Z-score of -0.9. This is indicative of osteoporosis. The bone mineral density of the left total hip is 0.648 g/cm2, corresponding to a T-score of -2.9, and a Z-score of -1.5. This is indicative of osteoporosis. The bone mineral density of the left femoral neck is 0.648 g/cm2, corresponding to a T-score of -2.8, and a Z-score of -1.2. This is indicative of osteoporosis. FRACTURE RISK: The FRAX index suggests a risk of major osteoporotic fracture of 16.2%, and of hip fracture 6.8%. MM/XR DEXA axial skeleton IMPRESSION: Based on bone mineral density, and according to World Health Organization (WHO) criteria, the diagnosis is consistent with osteoporosis. Statistically, 68% of repeat scans fall within 1 SD (+/- 0.010 g/cm2 for AP spine L1-L4) and 1 SD (+/- 0.012 g/cm2 for femur total) FRAX is a trademark of the [employer], a World Health Organization (WHO) Collaborating Center. Electronically signed by: Timbo Solorzano MD 09/27/2025 01:33 PM [facility]
== END 2025-09-27 12:30 | disposition home or self-care (01) ==
LOC: HO.MAMMO 12:29
PROVIDERS: PCP Nurse Practitioner Family; Visit Provider Nurse Practitioner Family
DX: Z12.31 Encounter for screening mammogram for malignant neoplasm of breast (principal); Z13.820 Encounter for screening for osteoporosis; Z78.0 Asymptomatic menopausal state
CPT/HCPCS: 77063; 77067; 77080

== ENCOUNTER → 2025-09-27 12:33 | Outpatient (BNV) | payer MEDICARE, SELFPAY | PROVIDERS: PCP Nurse Practitioner Family; Visit Provider Radiology Diagnostic Radiology | DX: E28.39 Other primary ovarian failure (principal) | CPT/HCPCS: 77080 ==